=== PATIENT | male | born 1980 | race African-American/Black ===

== ENCOUNTER 2017-04-22 10:04 | Inpatient (IN) | payer BC, MEDICARE ==
[2017-04-16 17:40] LABS: BASOPHILS 0.2 %; BASOPHILS ABSOLUTE 0.02 10/3/uL (0.0-0.16); EOSINOPHILS 0.2 %; EOSINOPHILS ABSOLUTE 0.02 10/3/uL (0.0-0.53); HEMOGLOBIN 11.5 g/dL (13.6-17.8); IMMATURE GRANULOCYTES 0.4 %; IMMATURE GRANULOCYTES ABSOLUTE 0.04 10/3/uL (0.0-0.11); LYMPHOCYTES 5.4 %; MEAN CORPUS HGB CONC 33.9 g/dL (32.0-36.0); MEAN CORPUSCULAR HEMOGLOB 30.3 pg (26.0-34.0); MEAN CORPUSCULAR VOLUME 89.2 fL (80-100); MEAN PLATELET VOLUME 10.6 fL (9.2-13.0); MONOCYTES 4.6 %; MONOCYTES ABSOLUTE 0.42 10/3/uL (0.21-1.20); NEUTROPHILS 89.2 %; NEUTROPHILS ABSOLUTE 8.23 10/3/uL (2.02-8.40); RBC DISTRIBUTION WIDTH 13.9 % (12.0-16.0); WHITE BLOOD CELLS 9.2 10/3/uL (4.5-10.5)
[2017-04-16 17:41] LABS: HEMATOCRIT 33.9 % (40.0-51.0); MANUAL DIFF NO %; PLATELET COUNT 296 10/3/uL (150-400)
[2017-04-16 17:46] LABS: CALCIUM, SERUM 8.7 MG/DL (8.5-10.4); CHLORIDE, SERUM 104 MMOL/L (96-112); CO2 (CARBON DIOXIDE) 26 MMOL/L (24-34); INTERNATIONAL NORMAL RATI 1.2 UNITS (-); POTASSIUM, SERUM 4.2 MMOL/L (3.5-5.3); PROTIME (NOT ORD) 14.7 SEC (12.0-14.5); SODIUM, SERUM 137 MMOL/L (135-148)
[2017-04-16 17:47] LABS: BUN (BLOOD UREA NITROGEN) 55 MG/DL (6-23); CREATININE 5.94 MG/DL (0.70-1.30); GFR AFRICAN AMERICAN 13 ML/MIN (>=60); GFR NON AFRICAN AMERICAN 11 ML/MIN (>=60); GLUCOSE, SERUM 224 MG/DL (60-99); PARTIAL THROMBO TIME 29.8 SEC (22.5-37.2)
[2017-04-16 17:55] LABS: ASCORBIC ACID (UR NOT ORDER) NEG (NEG); BILIRUBIN, URINE NEGATIVE (NEG); KETONE, URINE NEGATIVE (NEG); LEUKOCYTE ESTERASE(NOT OR NEG (NEG); WBC (NOT ORDERED) (RFLEX) 2 (0-5)
--- NOTE | ~2017-04-22 | OP ---
Record Of Operation [facility] [address] [place]. [address] NAME: BEBETO BRITTON : 76 STATUS : ADM IN PAT#: [id number] AGE: 36 ADM/REG DATE : 04/22/17 MR#: [id number] REPORT SERV DATE: 04/22/17 DICTATED BY: ZEFERINO JASON DATE: 04/22/17 REPORT STATUS : Draft TRANSCRIBED BY: MODL DATE: 04/22/17 DATE OF PROCEDURE: 04/22/2017 PREOPERATIVE DIAGNOSIS: Right renal mass. 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 PROCEDURE: Laparoscopic right nephrectomy. RESOURCE SPECIALIST: Francesco Michel. ANESTHESIA: General endotracheal. ESTIMATED BLOOD LOSS: 100 mL. FLUID REPLACEMENT: 1.2 L of crystalloid. DRAINS: A 15 mm Dimitry drain in the right renal fossa and a 16-Korean Jason catheter per urethra. INDICATION: A 36-year-old male with end-stage renal disease from diabetes and hypertension. He had a living-related transplant approximately nine years ago. That is approaching the end of its function. Recent CT shows a 3 cm mass in the mid pole of the right huslia kidney. FINDINGS: Small right kidney with a mass that on preliminary evaluation by the pathologist seems to be a papillary renal cell carcinoma. TECHNIQUE: The patient was identified, brought to the operating room, and administered general anesthetic agent by the Anesthesia Service and intubated. He was positioned. A Jason catheter was placed in the bladder under sterile conditions. He was placed in the right flank position with the left flank down, the right flank elevated, the kidney rest elevated, and table slightly flexed. He was appropriately padded and secured to the table. The abdomen was prepped with a DuraPrep and draped in usual sterile fashion. A 3 cm skin incision was made above the umbilicus and carried down to the rectus fascia. The holding sutures were placed in the rectus fascia and a transverse incision was made in the fascia. The underlying peritoneum was identified and opened sharply. A balloon trocar was placed into the peritoneal space and a pneumoperitoneum was created by insufflating carbon dioxide. A 10 mm laparoscopic was inserted. A 12 mm laparoscopic port was placed through the most superior incision of his transplant scar. I then placed a 5 mm port just off the midline near the xiphoid. Once the ports were in position, I began by incising the avascular line of Toldt and carried around the hepatic flexure. I mobilized the colon medially. I exposed the right psoas muscle. I identified the right ureter. I elevated the right ureter and subcutaneous tissues. The gonadal vessels were clipped and then transected with the Harmonic scalpel. I exposed the upper pole of the kidney. I mobilized the upper pole with the Harmonic scalpel. I then isolated the hilum. Right renal artery was seen coming off Record Of Operation [facility] [address] [place]. [address] NAME: BEBETO BRITTON : 76 STATUS : ADM IN PAT#: [id number] AGE: 36 ADM/REG DATE : 04/22/17 MR#: [id number] REPORT SERV DATE: 04/22/17 DICTATED BY: ZEFERINO JASON DATE: 04/22/17 REPORT STATUS : Draft TRANSCRIBED BY: MODL DATE: 04/22/17 just below the right renal vein. It was clipped with a 10 mm clip x2 proximally and x1 distally and then divided with the Harmonic scalpel. The renal vein and the remainder of the renal hilum were secured with a laparoscopic RICHARD stapling device. I then continued and excised the rest of the kidney from Gerota's fascia. The ureter was clipped distally and transected proximally. The specimen was placed in a specimen retrieval bag and held for later retrieval. I lowered the abdominal pressure down to 7 mmHg and irrigated the renal fossa copiously. He remained dry and fastidious hemostasis. I transferred the string out through the port that goes through the previous transplant scar. I then removed all the ports under low pressure. I extended my skin incision through the previous transplant scar for approximately 6 cm. I carried down and opened the fascia for similar distance. I then delivered the specimen out through this wound. I closed the posterior sheath with a [id number] 0 PDS and then I closed external oblique sheath with running 0 PDS. The supraumbilical port was closed by tying and holding sutures together and then placing [id number] 0 Vicryl sutures. The 5 mm ports are just closed at the skin. The subcutaneous tissues of all ports were irrigated copiously. I placed a 15 mm Dimitry drain through a separate stab incision in the right lower quadrant and left it in the renal fossa and it was sutured to skin with 2-0 Prolene. The skin was closed with 4-0 Monocryl and all wounds were dressed with Dermabond. The kidney rest was lowered. The patient was awakened, taken out of the flank position, extubated in supine position, transferred to a gurney, and taken to the recovery room in stable and satisfactory condition. MORALES/BRAD Zeferino Jason M.D. / [id number] CC: Zeferino Jason M.D.
--- NOTE | ~2017-04-22 | CN ---
Consultation Report [facility] [address] [place]. [address] NAME: BEBETO BRITTON : 76 STATUS : ADM IN PAT#: [id number] AGE: 36 ADM/REG DATE : 04/22/17 MR#: [id number] REPORT SERV DATE: 04/23/17 DICTATED BY: VANESSA ISLAS DATE: 04/22/17 REPORT STATUS : Draft TRANSCRIBED BY: MODL DATE: 04/22/17 CONSULTATION REPORT DATE OF CONSULTATION: 04/22/2017 REASON FOR CONSULT: Regarding acute kidney injury with living related donor renal transplant. 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 We are called for further evaluation and management of renal dysfunction with a BUN and creatinine of 63 and 5.9, was noted to be 55 and 5.9 on 04/16/2017 in preop labs. Electrolytes are stable. Espinal catheter is in place, clear yellow urine noted currently. The patient is chronically followed by Dr. Wagner in our office. PAST MEDICAL HISTORY: 1. End-stage renal disease, status post living related donor renal transplant from mother in 2006. 2. 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 3. 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 Wagner. 4. Diabetes mellitus type 2. 5. Hypertension. 6. Right renal mass, status post laparoscopic right nephrectomy on 04/22/2017. MEDICATIONS ON ADMISSION: Include amlodipine 10 mg daily, Lipitor 20 mg at bedtime, Imuran 100 mg daily, Os-Tai plus D, clonidine 0.1 mg p.r.n., hydrochlorothiazide 20 mg p.r.n., sliding scale insulin Levemir 18 units at bedtime, metoprolol 100 mg daily, multivitamin, omeprazole 20 mg daily, prednisone 5 mg daily, Prograf 2 mg twice daily, and magnesium supplement as well. ALLERGIES: NO KNOWN DRUG ALLERGIES. SOCIAL HISTORY: Denies tobacco, alcohol, or illicit drug use. FAMILY HISTORY: No history of renal diseases. REVIEW OF SYSTEMS: Negative except as mentioned in the HPI. PHYSICAL EXAMINATION: Consultation Report [place] [id number] [facility] [place]. [address] NAME: BEBETO BRITTON : 76 STATUS : ADM IN PAT#: [id number] AGE: 36 ADM/REG DATE : 04/22/17 MR#: [id number] REPORT SERV DATE: 04/23/17 DICTATED BY: VANESSA ISLAS DATE: 04/22/17 REPORT STATUS : Draft TRANSCRIBED BY: BRAD DATE: 04/22/17 VITAL SIGNS: Temperature is 97.6, blood pressure 172/101, pulse is 66, and respiratory rate is 16. GENERAL: Well-developed, well-nourished, black male, in no acute distress. HEENT: Normocephalic and atraumatic. Pupils are equal, round, and reactive to light. Mucous membranes are moist. NECK: Supple. No thyromegaly. CARDIOVASCULAR: Regular rate and rhythm. No murmurs appreciated. Normal S1 and S2. RESPIRATORY: Clear to auscultation bilaterally. Normal respiratory effort. ABDOMEN: Soft, mild tenderness to palpation, right flank with incision bandaged, MICHELE drain exists. No rebound. No guarding. EXTREMITIES: No clubbing, cyanosis, or edema. : Espinal catheter in place. Clear yellow urine noted. NEURO: Moves all extremities well. No focal deficits. Normal sensation in all extremities. PSYCH: Oriented x3 with flat affect. LABORATORY DATA: Sodium 138, potassium 3.8, chloride 104, bicarb 26, BUN 63, creatinine 5.9, glucose 108, calcium 9.5, . White count is 9.2, hemoglobin 11.5, and platelet count is 296. UA on 04/16/2017; specific gravity 1.013, greater than 500 protein, 150 glucose, and small blood. ASSESSMENT AND PLAN: 1. Living related donor renal transplant with chronic allograft nephropathy, baseline creatinine suspect to be 5.9. Electrolytes are currently stable, making urine. We will obtain records from office, agree with gentle IV fluids, continue current immunosuppression, but consider holding Prograf if creatinine rises overnight. 2. Status post laparoscopic right nephrectomy for renal mass, postoperative day #0. Estimated blood loss was 100 mL. Plan for pain control with caution for oversedation. 3. Diabetes mellitus type 2. Sliding scale insulin. 4. Hypertension, uncontrolled currently with pain likely contributed. Place the patient on IV hydralazine p.r.n. for systolic blood pressure greater than 170 given heart rate in the 60s. Hope to avoid renal replacement therapy, partners to follow in a.m. family updated at bedside. All questions answered. TONYA/BRAD Vanessa Islas M.D. / [id number] CC: Zeferino Espinal M.D. Consultation Report [address] [place]. [address] NAME: BEBETO BRITTON : 76 STATUS : ADM IN PAT#: [id number] AGE: 36 ADM/REG DATE : 04/22/17 MR#: [id number] REPORT SERV DATE: 04/23/17 DICTATED BY: VANESSA ISLAS. DATE: 04/22/17 REPORT STATUS : Draft TRANSCRIBED BY: BRAD DATE: 04/22/17 Edson Wagner Jr, M.D.
--- NOTE | ~2017-04-22 | HP ---
History And Physical [address] [place]. [address] NAME: BEBETO BRITTON : 76 STATUS : PRE IN PAT#: [id number] AGE: 36 ADM/REG DATE : MR#: [id number] REPORT SERV DATE: 04/22/17 DICTATED BY: ZEFERINO JASON DATE: 04/21/17 REPORT STATUS : Draft TRANSCRIBED BY: MODL DATE: 04/21/17 DATE OF ADMISSION: 04/22/2017 CHIEF COMPLAINT: Right renal mass. HISTORY OF PRESENT ILLNESS: A 36-year-old male with end-stage renal disease, was diagnosed with a 4 cm right renal mass. He had some chronic low back pain which led to an MRI. The MRI reveals a 4 cm upper pole right renal mass suspicious for neoplasm. The both kidneys are relatively small. He has had end-stage renal disease for a number of years. He has had a living-related renal transplant, which is failing. The patient denies any gross hematuria. Denies trouble with urination. 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 PAST SURGICAL HISTORY: Living-related renal transplant in 2006. MEDICATIONS: Metoprolol, Levemir, NovoLog, azathioprine, tacrolimus, hydrochlorothiazide, clonidine, calcium, and magnesium. ALLERGIES: NONE. SOCIAL HISTORY: Never smoked. Never drank. FAMILY HISTORY: Negative for renal disease or malignancy. REVIEW OF SYSTEMS: He wears glasses. PHYSICAL EXAMINATION: GENERAL: A well-developed, well-nourished male, in no acute distress. He is awake, alert, oriented x3. EYES: His sclerae anicteric. NECK: Supple. LUNGS: Clear. HEART: Regular rate and rhythm. ABDOMEN: Soft, nontender. Left and right lower quadrant, nontender. Flanks, nontender. : Penis normal. Testes descended. LOWER EXTREMITIES: No deformities. IMPRESSION: 1. Right renal mass and a nonfunctioning right kidney and the patient with end-stage renal disease, most likely a renal cell carcinoma. 2. Chronic rejection and approaching 2nd end-stage renal disease from a living-related renal transplant. History And Physical [address] [place]. [address] NAME: REBABEBETO CHAMPION : 76 STATUS : PRE IN PAT#: [id number] AGE: 36 ADM/REG DATE : MR#: [id number] REPORT SERV DATE: 04/22/17 DICTATED BY: ZEFERINO JASON DATE: 04/21/17 REPORT STATUS : Draft TRANSCRIBED BY: MODL DATE: 04/21/17 PLAN: Laparoscopic right nephrectomy. This may need to be converted to open. Potential complications of bleeding, infection, injury to adjacent structures such as lung pleura, diaphragm, liver, gallbladder, intestine, colon, blood vessels, nerves, and precipitate of further renal damage were all discussed with the patient. He consents to proceed. PF/BRAD Zeferino Jason M.D. / [id number] CC: David Hoffman MD
[~2017-04-22 10:04] MED LIST: ALTACE10 MG PO; CAT1 PO; CELLCEPT5 PO; HYDROCHLOROT25 MG PO; IMU PO; LEVEMFLXPN SC; LIPITOR20 PO; LOP100 PO; MAGNESIUM; MULTI-VIT HP PO; NORV10 PO; NOVOPEN SC; OS500+D PO; P10 PO; PRILO PO; PROGRAF1 PO; ZOCOR20 PO; [UNRECOGNIZED DRUG - CODE]
[2017-04-22 10:52] LABS: CALCIUM, SERUM 9.5 MG/DL (8.5-10.4); CHLORIDE, SERUM 104 MMOL/L (96-112); CO2 (CARBON DIOXIDE) 26 MMOL/L (24-34); CREATININE 5.94 MG/DL (0.70-1.30); GFR AFRICAN AMERICAN 13 ML/MIN (>=60); GFR NON AFRICAN AMERICAN 11 ML/MIN (>=60); POTASSIUM, SERUM 3.8 MMOL/L (3.5-5.3); SODIUM, SERUM 138 MMOL/L (135-148)
[2017-04-22 10:53] LABS: BUN (BLOOD UREA NITROGEN) 63 MG/DL (6-23); GLUCOSE, SERUM 108 MG/DL (60-99)
[2017-04-23 06:18] LABS: CREATININE, URINE 53.8 MG/DL
[2017-04-23 07:03] LABS: HEMATOCRIT 32.1 % (40.0-51.0)
[2017-04-23 07:23] LABS: ALBUMIN 3.1 G/DL (3.5-5.0); BUN (BLOOD UREA NITROGEN) 60 MG/DL (6-23); CHLORIDE, SERUM 105 MMOL/L (96-112); CO2 (CARBON DIOXIDE) 25 MMOL/L (24-34); CREATININE 5.69 MG/DL (0.70-1.30); GFR AFRICAN AMERICAN 13 ML/MIN (>=60); GFR NON AFRICAN AMERICAN 12 ML/MIN (>=60); GLUCOSE, SERUM 113 MG/DL (60-99); SODIUM, SERUM 140 MMOL/L (135-148)
[2017-04-23 07:29] LABS: CALCIUM, SERUM 8.3 MG/DL (8.5-10.4); POTASSIUM, SERUM 4.6 MMOL/L (3.5-5.3)
[2017-04-23] MEDS ORDERED: NORCO1 TA1 PO (14:58)
== END 2017-04-23 15:33 | disposition home or self-care (01) | DRG 656 ==
LOC: SDC/OF 10:04 → PACU 15:08 → 4SO 17:54
PROVIDERS: Internal Medicine Nephrology; Urology
PROC: 0TT04ZZ Resection of Right Kidney, Percutaneous Endoscopic Approach (ICD-10-PCS; principal; 2017-04-22 12:45)
DX: C64.1 Malignant neoplasm of right kidney, except renal pelvis (principal); N18.6 End stage renal disease; T86.11 Kidney transplant rejection; N17.9 Acute kidney failure, unspecified; I12.0 Hypertensive chronic kidney disease with stage 5 chronic kidney disease or end stage renal disease; Z94.0 Kidney transplant status; E11.22 Type 2 diabetes mellitus with diabetic chronic kidney disease
CPT/HCPCS: 36415; 80048; 80069; 81001; 82570; 82962; 83735; 84300; 85014; 85018; 85025; 85610; 85730; 86850; 86900; 86901; 88307; 88331; 93005; A9270-GY; J0360; J0690; J1170; J1720; J2250; J2405; J2710; J2795; J3010; J7500; J7507; P9045